=== PATIENT | female | born 1980 | race African-American/Black ===

== ENCOUNTER 2024-07-16 07:36 | Outpatient (CLI) | payer OTHER ==
--- NOTE | 2024-07-17 08:03 | Mammography Report ---
UNILATERAL RIGHT DIGITAL DIAGNOSTIC MAMMOGRAM 3D/2D WITH MAGNIFICATION: 07/16/2024 CLINICAL: Patient returns for magnification views of microcalcifications in the right breast. Comparison is made to exam dated: 04/23/2024 mammogram - [facility]. The right breast is heterogeneously dense, which may obscure small masses (category c / 51-75% glandu lar tissue). There are 1 cm grouped fine and round calcifications in the right breast at 11 o'clock posterior dept h. Some of the calcifications may be layering on the ML view. No other significant masses or calcifications are seen in the breast. IMPRESSION: PROBABLY BENIGN The grouped fine and round calcifications in the right breast are probably benign. This could represe nt fibrocystic change or milk of calcium. A follow-up mammogram in 6 months is recommended to demonstrate stability. Based on the Tyrer Cuzick model (a risk assessment model) the patient's lifetime risk is 14.8% and he r 10 year risk is 2.1%. According to the ACR, ACS, and NCCN guidelines, an annual breast MRI exam adrián ng with mammogram is recommended if the patient's lifetime risk is 20% or greater. This exam was interpreted at Station ID: [id number]. NOTE: For mammograms, a report in lay terms will be sent to the patient. Approximately 15% of breast malignancies will not be visualized mammographically. In the management of a palpable breast mass, a negative mammogram must not discourage biopsy of a clinically suspicious lesion. Electronically Signed By: Kumar Boyd M.D. slc/:07/16/2024 08:23:34 ACR BI-RADS Category 3: Probably benign 3343F PARENCHYMAL PATTERN: (D) - The breast(s) demonstrate(s) heterogeneously dense fibroglandular parmulugeta marcum. BI-RADS CATEGORY: (3) - 3 Mammogram [id number] 6 month follow-up LATERALITY: (B)
== END 2024-07-16 07:37 | disposition home or self-care (01) ==
LOC: DI 07:36
PROVIDERS: ATTEND Student in an Organized Health Care Education/Training Program
DX: R92.0 Mammographic microcalcification found on diagnostic imaging of breast (principal); R92.331 Mammographic heterogeneous density, right breast